=== PATIENT | male | born 1975 | race African-American/Black ===

== ENCOUNTER 2016-11-10 22:43 | Emergency (ER) | payer OTHER ==
[~2016-11-10] VITALS: Ht 180.3 cm; Wt 84.0 kg
[~2016-11-10 22:43] MED LIST: CEPH500C3 PO; LORT5TAB PO; Z.0.NO CURRENT MEDS
[2016-11-10 22:45] VITALS: BP 120/84; PULSE 82; RESP 16; TEMP 99; O2SAT 98
[2016-11-11] MEDS ORDERED: DOXY100C PO (00:09)
[2016-11-11] MEDS ORDERED: BACT800T5 PO (00:09)
[2016-11-11] MEDS ORDERED: HYDR-3533 PO (00:09)
[2016-11-11] MEDS ORDERED: LIDOCAINE 1%/EPINEPHrine 1:100,000 SOLN 20 ML VIAL INFIL ONE ×2 (00:15→00:45)
[2016-11-11] MEDS ORDERED: SULFAMETHOXAZOLE-TRIMETHOPRIM DS 800-160 MG TAB PO ONE (00:15)
[2016-11-11] MEDS ORDERED: DOXYCYCLINE HYCLATE 100 MG CAP PO ONE (00:15)
[2016-11-11] MEDS ORDERED: BUPIVACAINE HCL PF 0.5% 30 ML VIAL INFIL ONE (00:15)
--- NOTE | 2016-11-11 00:16 | PD ---
HPI Chief Complaint: Skin Problem Time Seen by Provider: 00:11 Travel History International Travel<30 days: No Contact w/Intl Traveler<30days: No Traveled to known affect area: No History of Present Illness HPI 41-year-old black male presents to emergency department with a recurrent abscess to his inner right thigh. He states that he has had this now for the past week. He is becoming increasing painful, red and swollen. He has having difficulty ambulating due to pain. He denies any fever chills. No drainage. No numbness or tingling. Pain is moderate no alleviating factors. PFSH Past Medical History Autoimmune Disease: No Cancer: No Cardiovascular Problems: No Diminished Hearing: Yes (RT DIM HEARING) Endocrine: No Genitourinary: No Immune Disorder: No Musculoskeletal: Yes (OLD ANLE FRACTURE) Neurologic: No Psychiatric: No Reproductive: No Respiratory: No Seizures: Yes (NONE IN LAST SEVERAL YEARS, NOT MEDICATED) Tetanus Vaccination: < 5 Years Past Surgical History Surgical History: No Previous Surgery Social History Alcohol Use: Yes (ONCE EVERY FEW DAYS) Tobacco Use: Yes (1PPD) Substance Use: Yes (MARIJUANA) Allergies-Medications (Allergen,Severity, Reaction): Coded Allergies: No Known Allergies (Verified , 07/19/11) Reported Meds & Prescriptions Reported Meds & Active Scripts Active Lortab (Hydrocodone-Acetaminophen) 5-325 Mg Tab 1 Tab PO Q4H PRN Bactrim DS (Sulfamethoxazole-Trimethoprim) 800-160 Mg Tab 1 Tab PO BID Doxycycline Hyclate 100 Mg Cap 100 Mg PO BID Review of Systems Except as stated in HPI: all other systems reviewed are Neg Physical Exam Narrative GENERAL: This is a well-nourished, well-developed patient, in no apparent distress. SKIN: Patient has a large area of erythema measuring approximately 6 x 6 cm with induration with a 3 x 3 cm fluctuant center. Tender to touch. No drainage. This is located to the inner right thigh on the buttocks., ecchymoses or lesions. Warm and dry. HEAD: Atraumatic. Normocephalic. EYES: PERRL, EOMI, no discharge or injection. No scleral icterus. EARS: Clear NOSE: Nasal turbinates appear normal. THROAT: Mucosa pink and moist. Airway patent. NECK: Trachea midline. supple, moves head freely. LUNGS: Clear to auscultation. CV: Regular in rhythm. ABDOMEN: Soft nontender. EXT: No clubbing cyanosis or edema. Data Data Last Documented VS Vital Signs Date Time Temp Pulse Resp B/P Pulse Ox O2 Delivery O2 Flow Rate FiO2 11/10/16 22:45 99.0 82 16 120/84 98 Room Air Orders Bupivacaine Pf 0.5% Inj (Marcaine Pf 0.5 (11/11/16 00:15) Lidocai-Epi 1%-1:100,000 Inj (Xylocaine- (11/11/16 00:15) Sulfamet-Trimeth Ds 800-160 Mg (Bactrim (11/11/16 00:15) Doxycycline (Vibramycin) (11/11/16 00:15) MDM Medical Decision Making Medical Screen Exam Complete: Yes Emergency Medical Condition: Yes Medical Record Reviewed: Yes Differential Diagnosis MDM: High Differential diagnoses: Abscess, folliculitis, cellulitis, lymphangitis, abrasion, contact dermatitis Narrative Course An incision and drainage has been performed. Patient's given doxycycline 100 mg and Bactrim DS by mouth. Procedures Procedure Narrative I&D abscess: Male tech present during the procedure After the risks and benefits were discussed the following procedure was performed. The skin is prepped and draped in the usual sterile fashion using Betadine. The abscess is anesthetized with 0.5% Marcaine and 1% lidocaine with epinephrine. After adequate anesthesia, an 11 blade scalpel is used to make a 2 centimeter central incision. Perulant material is expressed. Loculations are broken up using curved Leanne forceps. The wound is cleansed deeply using dilute Betadine and peroxide on Q-tips. The wound is packed open using iodoform gauze. A clean dressing is applied. The patient tolerated the procedure well. There was no complications. Follow-up instructions were given to the patient. At this eyewash station and brought while having wash his face with soap and then drop in each eye is Diagnosis Primary Impression: right inner thigh abscess Patient Instructions: General Instructions Additional Instructions: Rest. Elevation. keep clean and dry. remove the packing in two days. Daily wound care with soap, water and Neosporin. Three Advil every 6 hours. Doxycycline, Septra DS, and Lortab. Follow-up with a primary care doctor in one week. Return to the ER for any problems. Med/Other Pt SpecificInfo: Prescription(s) given, Wound Care Scripts Hydrocodone-Acetaminophen (Lortab)5-325 Mg Tab1 Tab PO Q4H PRN (PAIN) #12 TAB Prov:Victor Manuel Olson MD 11/11/16 Sulfamethoxazole-Trimethoprim (Bactrim DS)800-160 Mg Tab1 Tab PO BID #20 TAB Prov:Victor Manuel Olson MD 11/11/16 Doxycycline Hyclate 100 Mg Neo341 Mg PO BID #20 CAP Prov:Victor Manuel Olson MD 11/11/16 Disposition: 01 DISCHARGE HOME Condition: Stable Av Anguiano Nov 11, 2016 00:16
== END 2016-11-11 01:29 | disposition home or self-care (01) ==
LOC: NEPD 22:43
DX: L02.415 Cutaneous abscess of right lower limb (principal); R56.9 Unspecified convulsions; F17.200 Nicotine dependence, unspecified, uncomplicated; Z79.899 Other long term (current) drug therapy
CPT/HCPCS: 10061

== ENCOUNTER 2017-08-22 07:07 | Emergency (ER) | payer OTHER ==
[~2017-08-22] VITALS: Ht 177.8 cm; Wt 85.0 kg
[~2017-08-22 07:07] MED LIST changes: +BACT800T5 PO; -CEPH500C3 PO; +DOXY100C PO; +HYDR-3533 PO; -LORT5TAB PO; -Z.0.NO CURRENT MEDS
[2017-08-22 07:11] VITALS: BP 154/92; PULSE 65; RESP 16; TEMP 98.4; O2SAT 100
[2017-08-22] MEDS ORDERED: SODIUM CHLOR 0.9% 1000 ML INJ 1,000 ML IV SCH (07:35)
[2017-08-22] MEDS ORDERED: ORPHENADRINE INJ 60 MG/2 ML AMP IM ONE (07:45)
[2017-08-22] MEDS ORDERED: SODIUM CHLORIDE 0.9% FLUSH 10 ML FLUSH IV FLUSH PRN (07:45)
[2017-08-22] MEDS ORDERED: KETOROLAC TROMETHAMINE 30 MG/ML (IVP) VIAL IVP ONE (07:45)
--- NOTE | 2017-08-22 07:57 | PD ---
HPI Chief Complaint: Musculoskeletal Complaint Time Seen by Provider: 07:22 Travel History International Travel<30 days: No Contact w/Intl Traveler<30days: No Traveled to known affect area: No History of Present Illness HPI 42-year-old male presents to the emergency department with complaint of neck pain, all around, 5 days with worsening since yesterday. Denies injury. Reports nausea on Tuesday without vomiting. Denies continued nausea. Denies fevers. Denies recent illness. Denies IV drug use or cancer. Denies sore throat, ear pain, cough, nasal congestion. Denies paresthesias, loss of sensation, decreased range of motion, decreased strength all extremities. Pain is 9/10. Described as aching. Has been taking ibuprofen for symptom management with some relief. Tried using a heating pad with vibration and it made it worse. Worse with swallowing, movement. No known relieving factors. No primary care provider. No known allergies. Denies significant past medical history. Has no other medical complaints. No other modifying factors or associated signs and symptoms. PFSH Past Medical History Autoimmune Disease: No Cancer: No Cardiovascular Problems: No Diminished Hearing: Yes (RT DIM HEARING) Endocrine: No Genitourinary: No Immune Disorder: No Musculoskeletal: Yes (OLD ANLE FRACTURE) Neurologic: No Psychiatric: No Reproductive: No Respiratory: No Seizures: Yes (NONE IN LAST SEVERAL YEARS, NOT MEDICATED) Social History Alcohol Use: Yes (ONCE EVERY FEW DAYS) Tobacco Use: Yes (1PPD) Substance Use: Yes (MARIJUANA) Allergies-Medications (Allergen,Severity, Reaction): Coded Allergies: No Known Allergies (Verified Adverse Reaction, Unknown, 08/22/17) Reported Meds & Prescriptions Reported Meds & Active Scripts Active Robaxin (Methocarbamol) 500 Mg Tab 500 Mg PO QID PRN Ibuprofen 800 Mg Tab 800 Mg PO Q6HR PRN Review of Systems Except as stated in HPI: all other systems reviewed are Neg Physical Exam Narrative GENERAL: Well-nourished, well-developed male patient, in no acute distress SKIN: Warm and dry. No rash noted. HEAD: Atraumatic. Normocephalic. EYES: Pupils equal and round. No scleral icterus. No injection or drainage. EARS: Bilateral pinnae and external canals appear within normal limits. Bilateral tympanic membranes without erythema, dullness or perforation. ENT: Mucosa pink and moist. No erythema or exudates. No uvular edema. No uvular , palatal, or tonsillar deviation. Airway patent. NECK: Trachea midline. Posterior cervical lymphadenopathy. Minimal active rotation of the neck to the left and right. Midline point tenderness on palpation of the cervical spine. No obvious deformities. CARDIOVASCULAR: Regular rate and rhythm. No murmur appreciated. RESPIRATORY: No accessory muscle use. Clear to auscultation. Breath sounds equal bilaterally. GASTROINTESTINAL: Abdomen soft, non-tender, nondistended. Hepatic and splenic margins not palpable. Bowel sounds are active 4 quadrants. MUSCULOSKELETAL: No obvious deformities. No clubbing. No cyanosis. No edema. Normal gait. BACK: No point tenderness on palpation of spine. No obvious deformities. NEUROLOGICAL: Awake and alert. Oriented 3. No obvious cranial nerve deficits. Motor grossly within normal limits. Normal speech. Moves all extremities. 5/5 strength to all extremities. Sensory intact. PSYCHIATRIC: Appropriate mood and affect; insight and judgment normal. Data Data Last Documented VS Vital Signs Date Time Temp Pulse Resp B/P (MAP) Pulse Ox O2 Delivery O2 Flow Rate FiO2 08/22/17 07:11 98.4 65 16 154/92 (112) 100 Orders Orders Basic Metabolic Panel (Bmp) (08/22/17 07:35) Complete Blood Count With Diff (08/22/17 07:35) Iv Access Insert/Monitor (08/22/17 07:35) Sodium Chlor 0.9% 1000 Ml Inj (Ns 1000 M (08/22/17 07:35) Sodium Chloride 0.9% Flush (Ns Flush) (08/22/17 07:45) Ketorolac Inj (Toradol Inj) (08/22/17 07:45) Orphenadrine Inj (Norflex Inj) (08/22/17 07:45) Monoscreen (08/22/17 07:35) Ct Soft Tiss Neck W Iv Cont (08/22/17 ) Group A Rapid Strep Screen (08/22/17 07:47) Sodium Chlor 0.9% 1000 Ml Inj (Ns 1000 M (08/22/17 08:00) Iohexol 350 Inj (Omnipaque 350 Inj) (08/22/17 09:29) Labs Laboratory Tests Test 08/22/17 08:10 White Blood Count 9.0 TH/MM3 Red Blood Count 4.73 MIL/MM3 Hemoglobin 14.7 GM/DL Hematocrit 43.4 % Mean Corpuscular Volume 91.7 FL Mean Corpuscular Hemoglobin 31.1 PG Mean Corpuscular Hemoglobin Concent 33.9 % Red Cell Distribution Width 14.4 % Platelet Count 199 TH/MM3 Mean Platelet Volume 8.5 FL Neutrophils (%) (Auto) 60.3 % Lymphocytes (%) (Auto) 29.1 % Monocytes (%) (Auto) 8.4 % Eosinophils (%) (Auto) 1.3 % Basophils (%) (Auto) 0.9 % Neutrophils # (Auto) 5.4 TH/MM3 Lymphocytes # (Auto) 2.6 TH/MM3 Monocytes # (Auto) 0.7 TH/MM3 Eosinophils # (Auto) 0.1 TH/MM3 Basophils # (Auto) 0.1 TH/MM3 CBC Comment DIFF FINAL Differential Comment Blood Urea Nitrogen 13 MG/DL Creatinine 0.99 MG/DL Random Glucose 98 MG/DL Calcium Level 8.3 MG/DL Sodium Level 141 MEQ/L Potassium Level 4.2 MEQ/L Chloride Level 109 MEQ/L Carbon Dioxide Level 24.2 MEQ/L Anion Gap 8 MEQ/L Estimat Glomerular Filtration Rate 100 ML/MIN Monoscreen NEG MDM Medical Decision Making Medical Screen Exam Complete: Yes Emergency Medical Condition: Yes Medical Record Reviewed: Yes Differential Diagnosis Strep pharyngitis, peritonsillar abscess, torticollis, stiff neck, mono, shingles Narrative Course 42-year-old male with neck pain and stiff neck 5 days. Patient is afebrile and nontoxic-appearing. Denies fever, vomiting. Patient has midline tenderness on palpation of the cervical spine and tenderness all around the neck. He has posterior cervical lymphadenopathy. He is unable to actively rotate his neck greater than 45 to the left or right. I discussed patient with Dr. Ray, my attending physician, and we discussed a plan of care. IV, CT soft tissue neck, CT cervical spine, CBC, BMP, mono screen, rapid strep, normal saline bolus, Toradol, Norflex ordered. 0834: CBC unremarkable. 0928: BMP unremarkable. Monoscreen negative. 0953: CT soft tissue neck with no acute findings. Discussed findings with the patient and Dr. Ray and she agrees with discharge. Ibuprofen and Robaxin prescribed for home. Instructed patient to follow up with primary care provider. Patient verbalizes understanding and agreement with treatment plan. Patient is medically cleared and stable for discharge. Discussed reasons to return to the emergency department. Patient agrees with treatment plan. The patients vital signs are stable and the patient is stable for outpatient follow- up and treatment. Patient discharged home, stable and in no acute distress. Diagnosis Primary Impression: Neck pain Additional Impression: Stiffness of neck Referrals: [facility] Primary Care Physician Patient Instructions: Acute Neck Pain (ED), General Instructions Departure Forms: Tests/Procedures, Work Release Enter return to work date: Aug 29, 2017 Additional Instructions: Tylenol or ibuprofen as directed and as needed for pain Robaxin as prescribed and as needed for muscle spasms Heating pad and/or ice to affected area to reduce pain Avoid aggravating activities; increase activity as tolerated Follow-up with primary care provider Return to emergency department immediately with worsening of symptoms Med/Other Pt SpecificInfo: Prescription(s) given Scripts Methocarbamol (Robaxin) 500 Mg Tab 500 MG PO QID Y for MUSCLE SPASM, #30 TAB 0 Refills Prov: Josefina Jean 08/22/17 Ibuprofen (Ibuprofen) 800 Mg Tab 800 MG PO Q6HR Y for PAIN, #30 TAB 0 Refills Prov: Josefina Jean 08/22/17 Disposition: 01 DISCHARGE HOME Condition: Stable Josefina Jean Aug 22, 2017 07:56
[2017-08-22] MEDS ORDERED: SODIUM CHLOR 0.9% 1000 ML INJ 1,000 ML IV ONE (08:00)
[2017-08-22 08:25] LABS: AUTOMATED NEUTROPHIL # 5.4 TH/MM3 (1.8-7.7); BASOPHIL # 0.1 TH/MM3 (0-0.2); BASOPHIL % 0.9 % (0.0-2.0); EOSINOPHIL # 0.1 TH/MM3 (0-0.4); EOSINOPHIL % 1.3 % (0.0-4.0); HEMATOCRIT 43.4 % (39.0-51.0); HEMOGLOBIN 14.7 GM/DL (13.0-17.0); LYMPH % 29.1 % (9.0-44.0); LYMPHOCYTE # 2.6 TH/MM3 (1.0-4.8); MEAN CELL VOLUME 91.7 FL (80.0-100.0); MEAN CORPUSCULAR HEMOGLOBIN 31.1 PG (27.0-34.0); MEAN CORPUSCULAR HGB CONC 33.9 % (32.0-36.0); MEAN PLATELET VOLUME 8.5 FL (7.0-11.0); MONO % 8.4 % (0.0-8.0); MONOCYTE # 0.7 TH/MM3 (0-0.9); NEUT % 60.3 % (16.0-70.0); PLATELET COUNT 199 TH/MM3 (150-450); RED BLOOD COUNT 4.73 MIL/MM3 (4.50-5.90); RED CELL DISTRIBUTION WIDTH 14.4 % (11.6-17.2)
[2017-08-22 08:47] LABS: BICARBONATE 24.2 MEQ/L (21.0-32.0); CALCIUM 8.3 MG/DL (8.5-10.1); CREATININE 0.99 MG/DL (0.60-1.30)
[2017-08-22 09:23] LABS: MONOSCREEN NEG (NEG)
[2017-08-22] MEDS ORDERED: IOHEXOL 350 MG/ML 10 ML VIAL (for RAD DIAG) IVCONTRAST ONE (09:29)
--- NOTE | 2017-08-22 09:47 | RADRPT ---
EXAM DATE/TIME: 08/22/2017 09:24 [place] COMPARISON: No previous studies available for comparison. INDICATIONS : Neck and throat pain IV CONTRAST: 72 cc Omnipaque 350 (iohexol) IV RADIATION DOSE: 17.47 CTDIvol (mGy) MEDICAL HISTORY : Seizures. SURGICAL HISTORY : None. ENCOUNTER: Initial ACUITY: 4 - 6 days PAIN SCALE: 9/10 LOCATION: neck TECHNIQUE: Volumetric scanning of the neck was performed. Using automated exposure control and adjustment of th e mA and/or kV according to patient size, radiation dose was kept as low as reasonably achievable to obtain optimal diagnostic quality images. DICOM format image data is available electronically for r eview and comparison. FINDINGS: NASOPHARYNX: The nasopharyngeal airway has a normal configuration. No mucosal thickening or mass is seen. OROPHARYNX: The intrinsic muscles of the tongue are symmetric. The tonsillar pillars are intact. The prevertebr al soft tissues are not thickened. LARYNX: The supraglottic, glottic, and infraglottic structures are intact. PARAPHARYNGEAL: The parapharyngeal space is intact. SALIVARY GLANDS: The parotid and submandibular glands are intact. LYMPH NODES: No enlarged or necrotic-appearing nodes. THYROID: Homogeneous enhancement without evidence of nodule. BONES: Unremarkable. CONCLUSION: Negative exam. Richard West MD on August 22, 2017 at 9:42 Board Certified Radiologist. This report was verified electronically.
[2017-08-22] MEDS ORDERED: ROBA500T PO (09:55)
[2017-08-22] MEDS ORDERED: IBUP1TAB7 PO (09:55)
--- NOTE | 2017-08-22 09:58 | PD ---
Physical Exam Date Seen by Provider: Aug 22, 2017 Narrative Patient presents with chief complaint of neck pain. Onset was a couple of days ago but it became acutely worse today because of his presentation to us. On exam, he has some palpable cervical lymphadenopathy, left posterior. He has diffuse tenderness to palpation of the soft tissues of the neck. No other masses were palpated. Data Data Last Documented VS Vital Signs Date Time Temp Pulse Resp B/P (MAP) Pulse Ox O2 Delivery O2 Flow Rate FiO2 08/22/17 07:11 98.4 65 16 154/92 (112) 100 Orders Orders Basic Metabolic Panel (Bmp) (08/22/17 07:35) Complete Blood Count With Diff (08/22/17 07:35) Iv Access Insert/Monitor (08/22/17 07:35) Sodium Chlor 0.9% 1000 Ml Inj (Ns 1000 M (08/22/17 07:35) Sodium Chloride 0.9% Flush (Ns Flush) (08/22/17 07:45) Ketorolac Inj (Toradol Inj) (08/22/17 07:45) Orphenadrine Inj (Norflex Inj) (08/22/17 07:45) Monoscreen (08/22/17 07:35) Ct Soft Tiss Neck W Iv Cont (08/22/17 ) Group A Rapid Strep Screen (08/22/17 07:47) Sodium Chlor 0.9% 1000 Ml Inj (Ns 1000 M (08/22/17 08:00) Iohexol 350 Inj (Omnipaque 350 Inj) (08/22/17 09:29) Labs Laboratory Tests Test 08/22/17 08:10 White Blood Count 9.0 TH/MM3 Red Blood Count 4.73 MIL/MM3 Hemoglobin 14.7 GM/DL Hematocrit 43.4 % Mean Corpuscular Volume 91.7 FL Mean Corpuscular Hemoglobin 31.1 PG Mean Corpuscular Hemoglobin Concent 33.9 % Red Cell Distribution Width 14.4 % Platelet Count 199 TH/MM3 Mean Platelet Volume 8.5 FL Neutrophils (%) (Auto) 60.3 % Lymphocytes (%) (Auto) 29.1 % Monocytes (%) (Auto) 8.4 % Eosinophils (%) (Auto) 1.3 % Basophils (%) (Auto) 0.9 % Neutrophils # (Auto) 5.4 TH/MM3 Lymphocytes # (Auto) 2.6 TH/MM3 Monocytes # (Auto) 0.7 TH/MM3 Eosinophils # (Auto) 0.1 TH/MM3 Basophils # (Auto) 0.1 TH/MM3 CBC Comment DIFF FINAL Differential Comment Blood Urea Nitrogen 13 MG/DL Creatinine 0.99 MG/DL Random Glucose 98 MG/DL Calcium Level 8.3 MG/DL Sodium Level 141 MEQ/L Potassium Level 4.2 MEQ/L Chloride Level 109 MEQ/L Carbon Dioxide Level 24.2 MEQ/L Anion Gap 8 MEQ/L Estimat Glomerular Filtration Rate 100 ML/MIN Monoscreen NEG MDM Supervised Visit with CAR: Yes Narrative Course CBC & BMP Diagram 08/22/17 08:10 Calcium Level 8.3 L [place] screen is negative. Last Impressions Neck CT 08/22/17 0000 Signed Impressions: Service Date/Time: Tuesday, August 22, 2017 09:24 - CONCLUSION: Negative exam. Richard West MD No etiology for this patient's pain has been found. He is clinically stable for discharge to home. Diagnosis Primary Impression: Neck pain Patient Instructions: Acute Neck Pain (ED), General Instructions Med/Other Pt SpecificInfo: Prescription(s) given Scripts Methocarbamol (Robaxin) 500 Mg Tab 500 MG PO QID Y for MUSCLE SPASM, #30 TAB 0 Refills Prov: Josefina Jean 08/22/17 Ibuprofen (Ibuprofen) 800 Mg Tab 800 MG PO Q6HR Y for PAIN, #30 TAB 0 Refills Prov: Josefina Jean 08/22/17 Disposition: 01 DISCHARGE HOME Condition: Stable Beth Ray MD Aug 22, 2017 09:58
== END 2017-08-22 10:44 | disposition home or self-care (01) ==
LOC: NEPD 07:07 → NEPC 10:44
DX: M54.2 Cervicalgia (principal); M43.6 Torticollis; R59.0 Localized enlarged lymph nodes; F17.200 Nicotine dependence, unspecified, uncomplicated
CPT/HCPCS: 70491; 80048; 85025; 86308; 96361; 96372; 96374; 99284; J1885; J2360; J7030; Q9967

== ENCOUNTER 2017-09-18 16:20 | Emergency (ER) | payer OTHER ==
[~2017-09-18] VITALS: Ht 180.3 cm; Wt 86.0 kg
[~2017-09-18 16:20] MED LIST changes: -BACT800T5 PO; -DOXY100C PO; -HYDR-3533 PO; +IBUP1TAB7 PO; +ROBA500T PO
[2017-09-18 16:30] VITALS: BP 142/83; PULSE 58; RESP 18; TEMP 98.7; O2SAT 100
[2017-09-18] MEDS ORDERED: ACETAMINOPHEN/HYDROcodone 325 MG/5 MG TAB PO ONE (17:45)
[2017-09-18] MEDS ORDERED: DICL50TA PO (17:51)
--- NOTE | 2017-09-18 17:51 | PD ---
HPI Chief Complaint: Pain: Acute or Chronic Time Seen by Provider: 17:04 Travel History International Travel<30 days: No Contact w/Intl Traveler<30days: No Traveled to known affect area: No History of Present Illness HPI 42-year-old male complains of neck pain for 2 weeks. He was seen here 2 weeks ago and was given a muscle relaxer and NSAIDs. He reports that she has been somewhat helpful. Yesterday he was unable to work due to the pain and again today is unable to work due to the pain. He denies any specific traumatic injury. No numbness tingling weakness. No fever. PFSH Past Medical History Autoimmune Disease: No Cancer: No Cardiovascular Problems: No Diminished Hearing: Yes (RT DIM HEARING) Endocrine: No Genitourinary: No Immune Disorder: No Musculoskeletal: Yes (OLD ANKLE FRACTURE) Neurologic: No Psychiatric: No Reproductive: No Respiratory: No Seizures: Yes (NONE IN LAST SEVERAL YEARS, NOT MEDICATED) Past Surgical History Other Surgery: No Social History Alcohol Use: Yes (ONCE EVERY FEW DAYS) Tobacco Use: Yes (1PPD) Substance Use: Yes (MARIJUANA) Allergies-Medications (Allergen,Severity, Reaction): Coded Allergies: No Known Allergies (Verified Adverse Reaction, Unknown, 08/22/17) Reported Meds & Prescriptions Reported Meds & Active Scripts Active Robaxin (Methocarbamol) 500 Mg Tab 500 Mg PO QID PRN Ibuprofen 800 Mg Tab 800 Mg PO Q6HR PRN Review of Systems Except as stated in HPI: all other systems reviewed are Neg General / Constitutional: No: Fever HENT: No: Headaches Neurologic: No: Weakness, Focal Abnormalities, Coordination Problem, Tremor, Ataxia, Paresthesia, Sensory Disturbance Physical Exam Narrative GENERAL: 42-year-old male pleasant well-nourished well-developed no acute distress Vital Signs Date Time Temp Pulse Resp B/P (MAP) Pulse Ox O2 Delivery O2 Flow Rate FiO2 09/18/17 16:30 98.7 58 18 142/83 (102) 100 SKIN: Warm and dry. HEAD: Normocephalic. EYES: No scleral icterus. No injection or drainage. NECK: Supple, trachea midline. No JVD or lymphadenopathy. CARDIOVASCULAR: Regular rate and rhythm without murmurs, gallops, or rubs. RESPIRATORY: Breath sounds equal bilaterally. No accessory muscle use. GASTROINTESTINAL: Abdomen soft, non-tender, nondistended. MUSCULOSKELETAL: No cyanosis, or edema. No focal spinal tenderness. Minimal paracervical muscle tenderness to palpation. Range of motion the neck is normal. Upper extremity strength is normal and equal bilaterally. BACK: Nontender without obvious deformity. No CVA tenderness. Data Data Last Documented VS Vital Signs Date Time Temp Pulse Resp B/P (MAP) Pulse Ox O2 Delivery O2 Flow Rate FiO2 09/18/17 16:30 98.7 58 18 142/83 (102) 100 Orders Orders Acetamin-Hydrocod 325-5 Mg ([place] 5-325 (09/18/17 17:45) [facility] Medical Decision Making Medical Screen Exam Complete: Yes Emergency Medical Condition: Yes Medical Record Reviewed: Yes Differential Diagnosis Myofascial strain, radiculopathy, arthritis, muscle spasm Narrative Course Patient has tenderness along lateral paracervical musculature and will respond well to rest and rehydration as well as hot compresses. Additional pain control modifications discussed with patient at bedside. Work note provided at his request. Diagnosis Primary Impression: Muscle spasm Med/Other Pt SpecificInfo: Prescription(s) given Scripts Diclofenac Potassium (Diclofenac Potassium) 50 Mg Tab 50 MG PO TID, #20 TAB 0 Refills Prov: Cain Wells MD 09/18/17 Disposition: 01 DISCHARGE HOME Condition: Stable Cain Wells MD September 18, 2017 17:51
== END 2017-09-18 18:10 | disposition home or self-care (01) ==
LOC: NEPD 16:20
DX: M62.838 Other muscle spasm (principal); F17.210 Nicotine dependence, cigarettes, uncomplicated
CPT/HCPCS: 99283